=== PATIENT | female | born 1995 | race Caucasian/White ===

== ENCOUNTER 2021-07-04 13:50 | Emergency (ER) | payer BC, SELFPAY ==
--- NOTE | ~2021-07-04 | CT_ITS ---
EXAMINATION: CT abdomen pelvis w con DATE: 07/04/2021 15:46 INDICATION: Upper abdominal pain. Nausea, vomiting, and diarrhea. TECHNIQUE: Computed tomography (CT) of the abdomen and pelvis was performed with 100 mL Omnipaque 350 intravenous contrast. Automated exposure control and iterative reconstruction technique were employe d. The dose-length product was 1053.64 mGy-cm. COMPARISON: None. FINDINGS: The visualized portions of the lung bases are clear without pneumonia or pleural effusion. The heart size is normal. No pericardial effusion. The liver demonstrates focal steatosis adjacent to the falciform ligament. The spleen, gallbladder, pancreas, adrenal glands, and kidneys are normal. T here are no dilated loops of bowel. The appendix is normal. There are no pathologically enlarged lymp h nodes. There is no free intraperitoneal fluid. There is a benign bone island in the sacrum. There i s mild lumbar spondylosis. IMPRESSION: 1. No etiology for the patient's symptoms. Reviewed, dictated and finalized at location B.
[2021-07-04 14:27] VITALS: BP 144/82; PULSE 113; RESP 18; TEMP 36.8; O2SAT 99
[2021-07-04 15:24] VITALS: BP 132/82; O2SAT 100
[2021-07-04 15:24] LABS: Basophils Absolute Auto 0.1 K/mm3 (0.0-0.1); Basophils Percent Auto 0.5 % (0.2-1.2); Eosinophils Percent Auto 0.4 % (0-4.4); Hematocrit 44.7 % (37.0-47.0); Hemoglobin 15.4 g/dL (12.0-15.0); Immature Granulocyte Absolute 0.04 K/mm3 (0.00-0.031); Immature Granulocyte Percent A 0.4 % (0-0.5); Lymphocytes Absolute Auto 0.58 K/mm3 (0.9-3.2); Lymphocytes Percent Auto 5.2 % (18.3-44.2); Mean Corpuscular HGB Conc 34.5 g/dl (32-36); Mean Platelet Volume 11.2 fl (7.4-10.4); Monocytes Absolute Auto 0.7 K/mm3 (0.1-0.6); Monocytes Percent Auto 6.3 % (2.6-8.5); Neutrophils Absolute Auto 9.8 K/mm3 (1.3-6.7); Neutrophils Percent Auto 87.2 % (45.5-73.1); Platelet Count Result 232 k/mm3 (150-375); Red Blood Count 5.14 M/mm3 (4.2-5.4); White Blood Count 11.2 K/mm3 (4.5-10.0)
[2021-07-04 15:30] VITALS: BP 136/111; O2SAT 100
[2021-07-04 15:31] VITALS: O2SAT 98
[2021-07-04 15:35] LABS: Alanine Aminotransferase 26 U/L (4-35); Albumin Level 5.7 g/dL (3.5-5.1); Alkaline Phosphatase 92 U/L (38-126); Anion Gap 13 mmol/L (8-16); Aspartate Amino Transferase 25 U/L (14-36); Bilirubin,Total 0.8 mg/dL (0.2-1.3); Blood Urea Nitrogen 9 mg/dL (7-17); Calcium 9.8 mg/dL (8.4-10.2); Carbon Dioxide 25 mmol/L (22-30); Chloride 100 mmol/L (98-107); Estimated Glomerular Filt Rate > 60; Glucose 105 mg/dL (65-110); Lipase 46 U/L (23-300); Potassium 3.5 mmol/L (3.4-5.0); Sodium 138 mmol/L (137-145)
--- NOTE | 2021-07-04 15:39 | ED.ABDPAIN ---
HPI - Abdominal Pain General Chief Complaint: Abdominal Pain Stated Complaint: Abdominal Pain Time Seen by Provider: 07/04/21 15:08 Source: patient Mode of arrival: ambulatory Limitations: no limitations History of Present Illness HPI narrative: Patient is a 25-year-old female who presents the ED with report of abdominal pain. Patient reports having intermittent but daily upper abdominal pain for the past 2 months, worst in LUQ. She states smoking weed is the only thing that helps her pain. She has not tried Tylenol or ibuprofen. Yesterday and today, the pain became worse and began radiating around to her back. She also reported having nausea and vomiting this morning. She has had intermittent nausea over the last 2 months but has not vomited previously. She also reports having diarrhea for the past 1 week, but denies any fever, chills, rectal bleeding, hematemesis, urinary symptoms. Related Data Home Medications Medication Instructions Recorded Confirmed buspirone mg 07/04/21 prednisone 07/04/21 vilazodone [Viibryd] mg 07/04/21 Allergies Allergy/AdvReac Type Severity Reaction Status Date / Time midazolam [From Versed] Allergy Anxiety Verified 07/04/21 15:10 propofol Allergy Anxiety Verified 07/04/21 15:10 Review of Systems Review of Systems: CONSTITUTIONAL: Denies fever, chills. CARDIOVASCULAR: Denies chest pain. RESPIRATORY: Denies dyspnea. GASTROINTESTINAL: Reports upper/LUQ abdominal pain, N/V/D. Denies rectal bleeding, hematemesis. GENITOURINARY: Denies dysuria or hematuria. MUSCULOSKELETAL: Denies back pain, joint pain, or myalgia. PSYCHIATRIC: Reports anxiety. All systems reviewed & are unremarkable except as noted in HPI and below PMFSH Past Medical History Medical History (Updated 07/04/21 @ 17:41 by Raven Washington PA-C) ADHD Anxiety Depression OCD (obsessive compulsive disorder) Surgical History Surgical History (Updated 07/04/21 @ 15:42 by Raven Washington PA-C) History of nasal surgery Social History Social History (Updated 07/04/21 @ 15:43 by Raven Washington PA-C) Substance use type: marijuana Exam Narrative: GENERAL: Well appearing, well-nourished, non-toxic, in no acute distress. HEAD: Normocephalic, atraumatic. NECK: Supple. No adenopathy, no masses. RESPIRATORY: Airway patent, respirations nonlabored. Mild tachypnea. Clear to auscultation bilaterally, no rales, rhonchi, wheezing. CARDIOVASCULAR: Tachycardic with regular rhythm without murmurs, rubs, or gallops. Radial pulses 2+ and equal bilaterally. ABDOMINAL: Soft, diffuse mild upper abdominal tenderness to palpation, worst in LUQ, nondistended, no hepatosplenomegaly. Normoactive BS. MUSCULOSKELETAL: Moves all extremities. Strength/ROM intact without gross deformities. SKIN: Warm, dry, normal color. No rashes. NEURO: A&O X3. Speech clear. Cranial nerves II-XII grossly intact. Steady gait. No ataxic movements. PSYCHIATRIC: Anxious. Normal interaction. Course Vital Signs Vital signs: Vital Signs Temperature 98.3 F 07/04/21 14:27 Pulse Rate 113 H 07/04/21 14:27 Respiratory Rate 18 07/04/21 14:27 Blood Pressure 144/82 H 07/04/21 14:27 Pulse Oximetry 99 07/04/21 14:27 Temperature 98.3 F 07/04/21 14:27 Pulse Rate 99 07/04/21 18:00 Respiratory Rate 18 07/04/21 18:00 Blood Pressure 114/76 07/04/21 18:00 Pulse Oximetry 100 07/04/21 18:00 MDM - Abdominal Pain MDM Narrative Medical decision making narrative: Patient presented to ED with report of 2 months of upper abdominal pain, worsening today, associated with N/V/D. Vital signs stable upon arrival, though patient tachycardic and notably anxious. Laboratory evaluation notable for mild leukocytosis of 11.2, could be stress reaction or related to vomiting that occurred today. No significant electrolyte abnormality. No transaminitis. Lipase normal. UA without infection. CT abdomen pelvis without acute intra-abdominal findings. Patien
[2021-07-04] MEDS: SODIUM CHLORIDE 0.9% IV 1,000 ML 999 ML IV CONT (15:50)
[2021-07-04] MEDS: ONDANSETRON INJ 4 MG/2 ML VIAL IV PUSH (15:51)
[2021-07-04 16:03] LABS: Add Urine Microscopic? YES; Appearance Urine Clear (Clear); Bilirubin Urine Negative (Negative); Blood Urine Negative (Negative); Color Urine Yellow (Yellow); Glucose Urine UA Negative (Negative); Ketones Urine 1+ mg/dL (Negative); Leukocyte Esterase Ur Negative LEU/UL (Negative); Nitrate Urine Negative (Negative); Protein Urine Negative (Negative); Urobilinogen Urine 0.2 mg/dL (<2.0)
[2021-07-04 16:09] LABS: Bacteria Urine Trace /hpf; Mucus Urine Rare /lpf; RBC Urine 0-2 /hpf (0-2); WBC Urine 0-3 /hpf
[2021-07-04] MEDS: DICYCLOMINE HCL 10 MG CAPSULE 20 MG PO (16:34)
[2021-07-04 17:30] VITALS: O2SAT 100
[2021-07-04 18:00] VITALS: BP 114/76; PULSE 99; RESP 18; O2SAT 100
== END 2021-07-04 18:01 | disposition home or self-care (01) ==
PROVIDERS: Emergency Provider Emergency Medicine
DX: R10.12 Left upper quadrant pain (principal); F41.9 Anxiety disorder, unspecified; F90.9 Attention-deficit hyperactivity disorder, unspecified type; F32.A Depression, unspecified; F42.9 Obsessive-compulsive disorder, unspecified
CPT/HCPCS: 36415; 74177; 80053; 81001; 81025; 83690; 85025; 96361; 96365; 96375; 99284; A9270; J0131; J2405; J7030; Q9967